=== PATIENT | female | born 1995 | race Caucasian/White ===

== ENCOUNTER 2021-07-15 16:38 | Emergency (ER) | payer OTHER, MEDICARE, SELFPAY ==
[2021-07-15 17:09] VITALS: BP 185/125; PULSE 70; RESP 18; TEMP 38.7; O2SAT 97
== END 2021-07-15 17:33 | disposition left against medical advice (07) ==
PROVIDERS: PCP Nurse Practitioner Family
DX: R04.2 Hemoptysis (principal)
CPT/HCPCS: 99199

== ENCOUNTER 2022-05-07 17:18 | Emergency (ER) | payer OTHER, MEDICARE, MEDICAID, SELFPAY ==
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
[2022-05-07 17:22] VITALS: BP 161/95; PULSE 70; RESP 16; TEMP 37; O2SAT 98
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
== END 2022-05-07 18:59 | disposition home or self-care (01) ==
PROVIDERS: Emergency Provider Nurse Practitioner Family; PCP Nurse Practitioner Family
DX: S16.1XXA Strain of muscle, fascia and tendon at neck level, initial encounter (principal); S39.012A Strain of muscle, fascia and tendon of lower back, initial encounter; N18.6 End stage renal disease; V49.40XA Driver injured in collision with unspecified motor vehicles in traffic accident, initial encounter
CPT/HCPCS: 72040; 72100; 81025; 99283

== ENCOUNTER 2022-09-19 10:13 | Emergency (ER) | payer MEDICARE, MEDICAID, SELFPAY ==
--- NOTE | 2022-09-19 10:14 | ED.FEVER ---
HPI - Fever General Chief Complaint: Fever Stated Complaint: fever Time Seen by Provider: 09/19/22 11:17 Source: patient and RN notes reviewed Mode of arrival: ambulatory Limitations: no limitations History of Present Illness HPI Narrative: 27-year-old female with history of stage 5 kidney disease presents with concern for fever, earache for 2 days. She reports her kids have strep throat. She denies sore throat. She denies nasal congestion, rhinorrhea, headache, abdominal pain, back pain, dysuria, frequency, urgency. She reports she just had dialysis yesterday and was feeling this way. She denies any redness, swelling, warmth at her graft site. MD elicited complaint: fever Related Data Home Medications Medication Instructions Recorded Confirmed amoxicillin 500 mg capsule 500 mg BID 09/19/22 09/19/22 carvedilol 12.5 mg tablet 12.5 mg BID 09/19/22 09/19/22 clonidine HCl 0.1 mg tablet 0.1 mg QPM 09/19/22 09/19/22 diltiazem HCl 240 mg 240 mg PO BID 09/19/22 09/19/22 capsule,extended release 24 hr famotidine 20 mg tablet 20 mg DAILY 09/19/22 09/19/22 ferrous sulfate 325 mg (65 mg 65 mg DAILY 09/19/22 09/19/22 iron) tablet (Iron (ferrous sulfate)) losartan 100 mg tablet 100 mg PO DAILY 09/19/22 09/19/22 minoxidil 2.5 mg tablet 5 mg BID 09/19/22 09/19/22 ondansetron HCl 4 mg tablet 4 mg PRN 09/19/22 09/19/22 oxycodone 5 mg capsule 5 mg PO Q4H PRN Nausea 09/19/22 09/19/22 sevelamer carbonate 800 mg tablet 800 mg BIDWMEAL 09/19/22 09/19/22 Allergies Allergy/AdvReac Type Severity Reaction Status Date / Time codeine Allergy Nausea and Verified 09/19/22 10:30 Vomiting Review of Systems Review of Systems: CONSTITUTIONAL: Reports malaise, fever. EYES: Denies visual changes, redness, or discharge. ENT: Denies rhinorrhea, congestion, sinus pain, and sore throat. reports ear pain CARDIOVASCULAR: Denies chest pain, palpitations, or edema. RESPIRATORY: Denies cough. Denies dyspnea. GASTROINTESTINAL: Denies abdominal pain, nausea, vomiting, diarrhea SKIN: Denies rash or itching. MUSCULOSKELETAL: Denies myalgia. NEUROLOGIC: Denies headache. All systems reviewed & are unremarkable except as noted in HPI and below PMFSH Comments At time of signature, agree with nursing past medical, surgical, social and family history. There is no relevant family history pertinent to the presenting complaint Exam Narrative: GENERAL: Nontoxic-appearing and in no acute distress. HEAD: Normocephalic EYES: PERRLA, conjunctivae clear ENT: Nares clear. Mucous membranes moist. TM pearly espinosa with sharp light reflex bilaterally; no tragal tenderness. Oropharynx not erythematous without lesions. Tonsils not enlarged and without exudate, no drooling, no hoarseness, no trismus, uvula midline. NECK: Supple. No lymphadenopathy CHEST: Clear to auscultation, breath sounds equal. No wheezing, rhonchi, rales, or stridor. No respiratory distress, speaks in full sentences. HEART: Regular rate and rhythm. Murmur heard. SKIN: Warm, dry, no rash. NEURO: Alert and oriented x3. PSYCH: Normal mood and affect Course Course Emergency Course: Discussed limited diagnostic capability at the [facility], discussed follow-up or transfer in the emergency room for further evaluation patient's symptoms. Patient states she does not feel need your the emergency room at this time, she understands reasons to go for symptoms worsen or do not improve. Patient is aware of diagnosis, understands and agrees to treatment plan. Anticipatory guidance given. Patient agrees to follow-up as directed and is aware of reasons to seek care at the emergency department. Portions of this record may have been created with voice recognition software Level of Care: [facility] Visit Vital Signs Vital signs: Vital Signs Temperature 100.3 F H 09/19/22 10:24 Pulse Rate 76 09/19/22 10:24 Respiratory Rate 16 09/19/22 10:24 Blood Pressure 165/88 H 09/19/22 10:24 Pulse Oximet
[2022-09-19 10:24] VITALS: BP 165/88; PULSE 76; RESP 16; TEMP 37.9; O2SAT 98
== END 2022-09-19 11:58 | disposition home or self-care (01) ==
PROVIDERS: Emergency Provider Nurse Practitioner; PCP Nurse Practitioner Family
DX: R50.9 Fever, unspecified (principal); Z20.822 Contact with and (suspected) exposure to COVID-19; J45.909 Unspecified asthma, uncomplicated; N18.5 Chronic kidney disease, stage 5; Z99.2 Dependence on renal dialysis; N02.8 Recurrent and persistent hematuria with other morphologic changes
CPT/HCPCS: 81003; 87081; 87086; 87088; 87426; 87804; 87880; 99213; C9803; G0463

== ENCOUNTER 2022-12-14 08:49 | Emergency (ER) | payer MEDICARE, MEDICAID, SELFPAY ==
--- NOTE | ~2022-12-14 | XR_ITS ---
XR foot RT min 3V 12/14/2022 09:11 INDICATION: Right foot pain PROCEDURE: 4 views right foot COMPARISON: No prior studies for comparison. FINDINGS: There is a nondisplaced intra-articular fracture medial base right first distal phalanx. Li sfranc joint intact. No other fracture is identified.. The soft tissues appear within normal limits. No foreign bodies are identified. IMPRESSION: 1: Acute nondisplaced intra-articular fracture medial base right first distal phalanx. Reviewed, dictated and finalized at location [] IMPRESSION: 1: Acute nondisplaced intra-articular fracture medial base right first distal p halanx.
[2022-12-14 09:03] VITALS: BP 174/112; PULSE 73; RESP 18; TEMP 36.5; O2SAT 100
--- NOTE | 2022-12-14 09:04 | PC.NURSE ---
patient blood pressure is 174/112, patient stated she has not taken her medication yet and that it is in her car.
--- NOTE | 2022-12-14 09:07 | ED.LOWEXIN ---
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 States she struck the great toe on the wall this morning. Endorses severe pain and bruising to the site. Has not taken anything for pain. 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 Requesting something for pain, and prescription for pain medication. Patient is on hemodialysis T, TH, Sat, stating she goes to the hospitals for dialysis and does not have an accepting extermination inspector. Reports chronic BLE edema. Denies numbness, tingling or weakness of the extremities. Related Data Home Medications Medication Instructions Recorded Confirmed carvedilol 12.5 mg tablet 12.5 mg BID 09/19/22 12/14/22 clonidine HCl 0.1 mg tablet 0.1 mg QPM 09/19/22 12/14/22 diltiazem HCl 240 mg 240 mg PO BID 09/19/22 12/14/22 capsule,extended release 24 hr famotidine 20 mg tablet 20 mg DAILY 09/19/22 12/14/22 ferrous sulfate 325 mg (65 mg 65 mg DAILY 09/19/22 12/14/22 iron) tablet (Iron (ferrous sulfate)) minoxidil 2.5 mg tablet 5 mg BID 09/19/22 12/14/22 ondansetron HCl 4 mg tablet 4 mg PRN 09/19/22 12/14/22 sevelamer carbonate 800 mg tablet 800 mg BIDWMEAL 09/19/22 12/14/22 albuterol sulfate 90 mcg/actuation 2 puff inhalation DIRECTED 12/14/22 12/14/22 aerosol inhaler bumetanide 1 mg tablet 1 mg PO DAILY 12/14/22 12/14/22 bumetanide 2 mg tablet 2 mg PO DAILY 12/14/22 12/14/22 ipratropium 0.5 mg-albuterol 3 mg 3 ml inhalation DIRECTED 12/14/22 12/14/22 (2.5 mg base)/3 mL nebulization soln Allergies Allergy/AdvReac Type Severity Reaction Status Date / Time codeine Allergy Nausea and Verified 12/14/22 09:07 Vomiting Review of Systems Review of Systems: CONSTITUTIONAL: Denies body aches, fever, chills EYES: Denies visual changes ENT: Denies rhinorrhea, congestion CARDIOVASCULAR: Denies chest pain, palpitations, or edema. RESPIRATORY: Denies cough or dyspnea. GASTROINTESTINAL: Denies abdominal pain, nausea, vomiting, or diarrhea. SKIN: Denies rash, itching, or wounds. MUSCULOSKELETAL: per HPI NEUROLOGIC: Denies headache, numbness, tingling, or weakness. All systems reviewed & are unremarkable except as noted in HPI and below PMFSH Past Medical History Medical History Dickerson's disease Hemodialysis patient Social History Social History Smoking status: Current every day smoker Substance use: current Substance use type: marijuana Comments At time of signature, I have reviewed and agree with nursing past medical, surgical, social and family history unless otherwise noted. Please see nursing chart for further information. There is no relevant family history pertinent to the presenting complaint Exam Narrative: GENERAL: chronically ill-appearing, appears older than stated age; in no acute distress. CHEST: Speaks in full sentences. No respiratory distress. HEART: Regular rate and rhythm. Normal and equal peripheral pulses. EXTREMITIES: Right foot has normal strength and sensation, limited range of motion to great toe, endorses pain to right great toe with movement. Moderate medial ecchymosis at base of distal phalanx, tender. No open wounds or obvious deformity; alignment normal, pulse palpable and equal bilaterally, skin warm, dry, pink. Capillary refill less than 3 seconds. Bilateral Lower extremity edema 2+ firm, pitting. SKIN: Warm, dry, no rash. NEURO: Alert and oriented x3. PSYCH: flat affect Course Course Emergency Course: Patient is aware of diagnosis, understands and agrees to isha
[2022-12-14] MEDS: ACETAMINOPHEN 500 MG TABLET 1000 MG PO (09:39)
== END 2022-12-14 09:41 | disposition home or self-care (01) ==
PROVIDERS: Emergency Provider Nurse Practitioner Family; PCP Nurse Practitioner Family
DX: S92.414A Nondisplaced fracture of proximal phalanx of right great toe, initial encounter for closed fracture (principal); W22.09XA Striking against other stationary object, initial encounter; F17.200 Nicotine dependence, unspecified, uncomplicated; F12.90 Cannabis use, unspecified, uncomplicated; N18.5 Chronic kidney disease, stage 5; Z99.2 Dependence on renal dialysis; N02.8 Recurrent and persistent hematuria with other morphologic changes
CPT/HCPCS: 73630; 99214; A9270; G0463

== ENCOUNTER 2024-08-03 17:59 | Emergency (ER) | payer MEDICARE, MEDICAID, SELFPAY ==
--- NOTE | ~2024-08-03 | XR_ITS ---
CHEST RADIOGRAPH, PA AND LATERAL CLINICAL HISTORY: cough, congestion, fatigue, dialysis pt, bergers disease . COMPARISON: None available TECHNIQUE: PA and lateral views of the chest. FINDINGS The cardiomediastinal silhouette is markedly enlarged. The lungs are clear. Visualized osseous structures and soft tissues are unremarkable. IMPRESSION: Significant cardiomegaly, without focal infiltrate or effusion. Reviewed, dictated and finalized at location A. TER LINING SMOOTHER
--- NOTE | 2024-08-03 18:02 | ED.URI ---
HPI - URI/Sore Throat General Chief Complaint: Upper Respiratory Infection Stated Complaint: Cough/Congested Time Seen by Provider: 08/03/24 18:16 Source: patient Mode of arrival: ambulatory Limitations: no limitations History of Present Illness HPI Narrative: Geraldine is a 29-year-old female patient presenting to the clinic today with complaints of cough and congestion for the past 2-3 days. She reports she was recently admitted in the hospital for influenza a and they told her that she had a touch pneumonia. She reports she is having coughing congestion. No known fevers or chills. Is a dialysis patient. MD elicited complaint: sore throat and nasal congestion Related Data Home Medications ?Medication ?Instructions ?Recorded ?Confirmed ?Last Taken ?Type carvedilol 12.5 mg tablet 12.5 mg BID 09/19/22 12/14/22 Unknown History clonidine HCl 0.1 mg tablet 0.1 mg QPM 09/19/22 12/14/22 Unknown History diltiazem HCl 240 mg 240 mg PO BID 09/19/22 12/14/22 Unknown History capsule,extended release 24 hr famotidine 20 mg tablet 20 mg DAILY 09/19/22 12/14/22 Unknown History ferrous sulfate 325 mg (65 mg 65 mg DAILY 09/19/22 12/14/22 Unknown History iron) tablet (Iron (ferrous sulfate)) minoxidil 2.5 mg tablet 5 mg BID 09/19/22 12/14/22 Unknown History ondansetron HCl 4 mg tablet 4 mg PRN 09/19/22 12/14/22 Unknown History sevelamer carbonate 800 mg tablet 800 mg BIDWMEAL 09/19/22 12/14/22 Unknown History albuterol sulfate 90 mcg/actuation 2 puff inhalation DIRECTED 12/14/22 12/14/22 Unknown History aerosol inhaler bumetanide 1 mg tablet 1 mg PO DAILY 12/14/22 12/14/22 Unknown History bumetanide 2 mg tablet 2 mg PO DAILY 12/14/22 12/14/22 Unknown History ipratropium 0.5 mg-albuterol 3 mg 3 ml inhalation DIRECTED 12/14/22 12/14/22 Unknown History (2.5 mg base)/3 mL nebulization soln spironolactone 50 mg tablet mg 08/03/24 Unknown History Allergies Allergy/AdvReac Type Severity Reaction Status Date / Time tramadol Allergy Mild Other Verified 08/03/24 18:25 codeine Allergy Nausea and Verified 08/03/24 18:10 Vomiting Review of Systems Review of Systems: Pertinent positives per HPI. Patient denies any fever, chills, rash, headache, visual changes, dizziness, shortness of breath, chest pain, palpitations, nausea, vomiting, diarrhea, constipation, abdominal pain, or any urinary issues. [facility] Past Medical History Medical History Hemodialysis patient Dickerson's disease Social History Social History Smoking status: Current every day smoker Substance use: current Substance use type: marijuana Comments At the time of my signature, I reviewed and agree with the nursing past medical, surgical, social, and family history. There is no relevant family history pertinent to the patient complaint. Exam Narrative: General: Well-developed, well nourished, in no apparent distress Head: Normocephalic, atraumatic Eyes: Pupils equally round and reactive to light bilaterally, EOM intact, sclera and conjunctive clear, no discharge, lids normal Ears: TMs intact and clear, ear canals clear, no drainage, grossly hearing normal. Nose: Nares patent, no discharge, no inflammation, no sinus tenderness. Mouth: Oral pharynx without lesions or masses, good dentition, MMM. Neck: Supple, trachea midline, no enlargement of anterior or posterior cervical nodes, no thyroid masses or goiter palpable. Cardio: Regular rate and rhythm, s1 and s2 normal, no murmur appreciated. Resp: Clear to auscultation bilaterally, no rhonchi, rales, wheezing or rubs Course Course Emergency Course: Portions of this record may have been created with voice recognition software. Level of Care: Express Care Visit Vital Signs Vital signs: Vital Signs Temperature 36.6 C 08/03/24 18:22 Pulse Rate 75 08/03/24 18:22 Respiratory Rate 15 08/03/24 18:22 Blood Pressure 169/104 H 08/03/24 18:22 Pulse Oximetry 100 08/03/24 18:22 Oxygen Delivery Room Air 08/03/24 18:22 Temperature 36.6 C 08/03/24 18:22 Pulse Rate 75 08/03/24 18:26 Respiratory Rate 15 08/03/24 18:26 Blood Pressure 169/104 H 08/03/24 18:22 Pulse Oximetry 100 08/03/24 18:26 Oxygen Delivery Room Air 08/03/24 18:22 Vital signs reviewed MDM - URI/Sore Throat MDM Narrative Medical decision making narrative: At the time of visit patient is resting comfortably on the exam table. Patient appears to be nontoxic. Labs: COVID and influenza testing was performed and was negative in the clinic today Diagnostics: Chest x-ray was performed and I suspect patient has right lower lobe pneumonia. Plan: I suspect patient has right lower lobe pneumonia. Prescription for Augmentin and azithromycin was sent to the pharmacy. Supportive measures were discussed with the patient and they voiced understanding discharge instructions and agrees to treatment plan. Return precautions reviewed Differential Diagnosis Differential diagnosis: Likely upper respiratory infection, otitis media, sinusitis, viral infection, bronchitis, influenza, pharyngitis and other (COVID) Lab Data Labs: Lab Results 08/03/24 Range/Units 18:41 POC Influenza A Ag Negative (Negative) POC Influenza B Ag Negative (Negative) POC SARS CoV-2 Ag Negative (Negative) Imaging Data My impression: Right lower lobe pneumonia Radiologist's impression: ITS Impressions Chest X-Ray 08/03/24 18:41 IMPRESSION: Significant cardiomegaly, without focal infiltrate or effusion. Discharge Plan Discharge Clinical Impression: Right lower lobe pneumonia Qualifiers: Pneumonia type: due to unspecified organism Qualified Code(s): J18.9 - Pneumonia, unspecified organism Patient Disposition: Home, Self-Care Condition: Stable Instructions: Antibiotic Form, Pneumonia (ED) Additional Instructions: Take prescription medications only as prescribed-albuterol inhaler, Augmentin and azithromycin Increase fluids and stay well hydrated Tylenol/motrin for pain/fever Flonase and OTC antihistamines as directed Vicks vapor rub to open sinuses Sinus rinses for congestion Cepacol spray, cough drops, throat lozenges, warm tea with honey/lemon, gargle salt water to soothe throat BRAT diet for diarrhea Clear liquids x 24 hours then advance as tolerated for nausea/vomiting Go to the ED if you develop a worsening in your condition- high fever not controlled by Tylenol or Motrin, dehydration, weakness, lethargy, shortness of breath, or chest pain. Follow up with your PCP in 3-5 days if symptoms persist. Patient Language: Citizen Of [place] Prescriptions: New azithromycin 250 mg tablet See Rx Instructions .ROUTE .COMPLEX Qty: 6 0RF Rx Instructions: For 250 mg dose pack: take 500 mg today (day 1), then 250 mg for 4 days (days 2-5) amoxicillin-pot clavulanate 875-125 mg tablet 1 tablet PO Q12H 7 Days Qty: 14 0RF No Action spironolactone 50 mg tablet clonidine HCl 0.1 mg tablet 0.1 mg QPM carvedilol 12.5 mg tablet 12.5 mg BID diltiazem HCl 240 mg capsule,extended release 24hr 240 mg PO BID ondansetron HCl 4 mg tablet 4 mg PRN minoxidil 2.5 mg tablet 5 mg BID famotidine 20 mg tablet 20 mg DAILY ferrous sulfate [Iron (ferrous sulfate)] 325 mg (65 mg iron) Tablet 65 mg DAILY sevelamer carbonate 800 mg Tablet 800 mg BIDWMEAL bumetanide 2 mg tablet 2 mg PO DAILY bumetanide 1 mg tablet 1 mg PO DAILY ipratropium-albuterol 0.5 mg-3 mg(2.5 mg base)/3 mL solution for nebulization 3 ml INHALATION DIRECTED albuterol sulfate 90 mcg/actuation HFA aerosol inhaler 2 puff INHALATION DIRECTED tramadol 50 mg tablet 50 mg PO Q12H PRN (Reason: pain) Qty: 10 0RF Follow-up/Referrals: Murali,MARY ANN Trujillo [Primary Care Provider] - Time of Disposition: 18:46 Quality NIHSS Nursing Documentation ED NIHSS nursing documentation: reviewed/agree
[2024-08-03 18:22] VITALS: BP 169/104; PULSE 75; RESP 15; TEMP 36.6; O2SAT 100
[2024-08-03 18:26] VITALS: PULSE 75; RESP 15; O2SAT 100
[2024-08-03 18:45] LABS: EDCOVIDSCREEN Negative (Negative); EDINFLUASCREEN Negative (Negative); EDINFLUBSCREEN Negative (Negative)
== END 2024-08-03 18:55 | disposition home or self-care (01) ==
PROVIDERS: Emergency Provider Nurse Practitioner Family; PCP Nurse Practitioner Family
DX: J18.1 Lobar pneumonia, unspecified organism (principal); Z20.822 Contact with and (suspected) exposure to COVID-19; F17.200 Nicotine dependence, unspecified, uncomplicated; F12.90 Cannabis use, unspecified, uncomplicated; N02.B1 Recurrent and persistent immunoglobulin A nephropathy with glomerular lesion; N18.5 Chronic kidney disease, stage 5; Z99.2 Dependence on renal dialysis; J45.909 Unspecified asthma, uncomplicated
CPT/HCPCS: 71046; 87426; 87804; 99213; G0463

== ENCOUNTER 2025-04-05 10:27 | Emergency (ER) | payer MEDICARE, MEDICAID, SELFPAY ==
[2025-04-05 10:36] VITALS: BP 162/95; PULSE 68; RESP 18; TEMP 36.6; O2SAT 99
--- NOTE | 2025-04-05 10:58 | ED.DENTAL ---
HPI - Dental/Oral General Chief complaint: Dental/Oral Stated complaint: Rash In Mouth Time Seen by Provider: 04/05/25 10:58 Mode of arrival: ambulatory Limitations: no limitations History of Present Illness HPI Narrative: 30-year-old female presents with concern for bumps on her tongue matter itchy. She reports she is currently on an antibiotic for a tooth abscess. Reports the tooth pain is improved. Patient is on hemodialysis. She denies fever, body aches, chills, sweats. She denies problems swallowing, sore throat or cold symptoms. Related Data Home Medications ?Medication ?Instructions ?Recorded ?Confirmed ?Last Taken ?Type carvedilol 12.5 mg tablet 12.5 mg BID 09/19/22 12/14/22 Unknown History clonidine HCl 0.1 mg tablet 0.1 mg QPM 09/19/22 12/14/22 Unknown History diltiazem HCl 240 mg 240 mg PO BID 09/19/22 12/14/22 Unknown History capsule,extended release 24 hr famotidine 20 mg tablet 20 mg DAILY 09/19/22 12/14/22 Unknown History ferrous sulfate 325 mg (65 mg 65 mg DAILY 09/19/22 12/14/22 Unknown History iron) tablet (Iron (ferrous sulfate)) minoxidil 2.5 mg tablet 5 mg BID 09/19/22 12/14/22 Unknown History ondansetron HCl 4 mg tablet 4 mg PRN 09/19/22 12/14/22 Unknown History sevelamer carbonate 800 mg tablet 800 mg BIDWMEAL 09/19/22 12/14/22 Unknown History albuterol sulfate 90 mcg/actuation 2 puff inhalation DIRECTED 12/14/22 12/14/22 Unknown History aerosol inhaler bumetanide 1 mg tablet 1 mg PO DAILY 12/14/22 12/14/22 Unknown History bumetanide 2 mg tablet 2 mg PO DAILY 12/14/22 12/14/22 Unknown History ipratropium 0.5 mg-albuterol 3 mg 3 ml inhalation DIRECTED 12/14/22 12/14/22 Unknown History (2.5 mg base)/3 mL nebulization soln spironolactone 50 mg tablet mg 08/03/24 Unknown History alprazolam 0.5 mg tablet mg 04/05/25 Unknown History amlodipine 10 mg tablet mg 04/05/25 Unknown History amoxicillin 500 mg capsule mg 04/05/25 Unknown History Allergies Allergy/AdvReac Type Severity Reaction Status Date / Time tramadol Allergy Mild Other Verified 04/05/25 10:43 codeine Allergy Nausea and Verified 04/05/25 10:43 Vomiting Review of Systems Review of Systems: CONSTITUTIONAL: Denies malaise, chills, sweats, or fever. EYES: Denies visual changes ENT: Denies rhinorrhea, congestion, sinus pain, otalgia or sore throat. Denies dental pain. Reports red bumps on her tongue better itchy CARDIOVASCULAR: Denies chest pain, palpitations RESPIRATORY: Denies cough or dyspnea. SKIN: Denies rash or itching. MUSCULOSKELETAL: Denies myalgia. NEUROLOGIC: Denies numbness, weakness, or headache. All systems reviewed & are unremarkable except as noted in HPI and below PMFSH Past Medical History Medical History Hemodialysis patient Dickerson's disease Social History Social History Smoking status: Current every day smoker Substance use: current Substance use type: marijuana Comments At time of signature, agree with nursing past medical, surgical, social and family history. There is no relevant family history pertinent to the presenting complaint Exam Narrative: GENERAL: Well-appearing, well-nourished, and in no acute distress. HEAD: Normocephalic, atraumatic. EYES: PERRLA, sclera clear ENT: Nares clear, turbinates pink, no rhinorrhea or epistaxis. Mucous membranes moist. Oropharynx without erythema or lesions. Tonsils not enlarged and without exudate. Missing teeth, broken teeth, caries. It tongue slightly beefy and erythematous with papules NECK: Supple. No lymphadenopathy. CHEST: No respiratory distress. Speaks in full sentences. HEART: Regular rate and rhythm. SKIN: Warm, dry, no visible rash. NEURO: Alert and oriented x3. PSYCH: Normal mood and affect Course Course Emergency Course: Patient is aware of diagnosis, understands and agrees to treatment plan. Anticipatory guidance given. Patient agrees to follow-up as directed and is aware of reasons to seek care at the emergency department. Portions of this record may have been created with voice recognition software Level of Care: Express Care Visit Vital Signs Vital signs: Vital Signs Temperature 97.9 F 04/05/25 10:36 Pulse Rate 68 04/05/25 10:36 Respiratory Rate 18 04/05/25 10:36 Blood Pressure 162/95 H 04/05/25 10:36 Pulse Oximetry 99 04/05/25 10:36 Oxygen Delivery Room Air 04/05/25 10:36 Temperature 97.9 F 04/05/25 10:36 Pulse Rate 68 04/05/25 10:36 Respiratory Rate 18 04/05/25 10:36 Blood Pressure 162/95 H 04/05/25 10:36 Pulse Oximetry 99 04/05/25 10:36 Oxygen Delivery Room Air 04/05/25 10:36 Reviewed. MDM - Dental/Oral MDM Narrative Medical decision making narrative: I evaluated this in the [facility]. History is obtained from patient who is an independent historian and physical exam was performed.? Available medical records were reviewed. ? Exam findings and relevant testing show no acute concerns or changes; patient is non-toxic appearing and is in no distress. Patients pain and complaint coupled with physical findings are consistant with dentalgia. There are no focal signs of space occupying lesions that are compromising to the airway; no dysphagia, odynophagia, dysphonia, or dyspnea. No uvular deviation or soft palate edema. Patient is non-toxic appearing. The floor of the mouth is soft with no signs of Adolfo's Angina; no induration below mandible, no neck pain. Patient is without trismus or drooling and able to swallow secretions. Patient is felt appropriate for discharge home with dental follow up. ? Differential diagnosis and treatment plan were discussed with the patient. Patient agrees with discussion and after shared medical decision making agrees with plan of care. All questions were answered to the patient's satisfaction. Patient is appropriate for outpatient treatment and follow-up. Differential Diagnosis Differential diagnosis: Likely gingival abscess, dental caries, toothache, dental abscess, fracture of tooth and aphthous ulcer Critical Care Time Critical Care Time Critical Care Time: No Discharge Plan Discharge Clinical Impression: Candidiasis of mouth Patient Disposition: Home Condition: Stable Instructions: Oral Candidiasis (ED) Additional Instructions: 1) Please follow-up with your primary care doctor in the next 1-2 days. 2) If you have any worsening of symptoms or any other urgent concerns please go to the ER. 3) Please take medications as prescribed and continue taking your home medications as usual. 4) Please read and follow information included in discharge instructions. Patient Language: Yoruba Prescriptions: New nystatin 100,000 unit/mL suspension 5 ml PO QID 7 Days Qty: 140 0RF Rx Instructions: swish and swallow No Action spironolactone 50 mg tablet amoxicillin 500 mg capsule alprazolam 0.5 mg tablet amlodipine 10 mg tablet clonidine HCl 0.1 mg tablet 0.1 mg QPM carvedilol 12.5 mg tablet 12.5 mg BID diltiazem HCl 240 mg capsule,extended release 24hr 240 mg PO BID ondansetron HCl 4 mg tablet 4 mg PRN minoxidil 2.5 mg tablet 5 mg BID famotidine 20 mg tablet 20 mg DAILY ferrous sulfate [Iron (ferrous sulfate)] 325 mg (65 mg iron) Tablet 65 mg DAILY sevelamer carbonate 800 mg Tablet 800 mg BIDWMEAL bumetanide 2 mg tablet 2 mg PO DAILY bumetanide 1 mg tablet 1 mg PO DAILY ipratropium-albuterol 0.5 mg-3 mg(2.5 mg base)/3 mL solution for nebulization 3 ml INHALATION DIRECTED albuterol sulfate 90 mcg/actuation HFA aerosol inhaler 2 puff INHALATION DIRECTED tramadol 50 mg tablet 50 mg PO Q12H PRN (Reason: pain) Qty: 10 0RF Follow-up/Referrals: Murali,MARY ANN Trujillo [Primary Care Provider] Time of Disposition: 11:05
== END 2025-04-05 11:09 | disposition home or self-care (01) ==
PROVIDERS: Emergency Provider Nurse Practitioner; PCP Nurse Practitioner Family
DX: B37.0 Candidal stomatitis (principal); F17.200 Nicotine dependence, unspecified, uncomplicated; F12.90 Cannabis use, unspecified, uncomplicated; N02.B9 Other recurrent and persistent immunoglobulin A nephropathy; Z99.2 Dependence on renal dialysis
CPT/HCPCS: 99213; G0463